=== PATIENT | male | born 1975 | race African-American/Black ===

== ENCOUNTER 2017-01-01 19:17 | Emergency (ER) | payer OTHER ==
[~2017-01-01] VITALS: Ht 185.4 cm; Wt 85.1 kg
[2017-01-01 19:34] VITALS: TEMP 37; Ht 185.4 cm; Wt 85.1 kg
--- NOTE | 2017-01-01 20:14 | DIAGNOSTIC IMAGING REPORT ---
LEFT THUMB 3 VIEWS CLINICAL HISTORY: Left thumb injury and pain. FINDINGS: 3 views of the left thumb are obtained. No prior studies are available for comparison at the time of dictation. The skeletal structures are well mineralized. No fracture is seen and there is no dislocation. Minimal arthritic change is present at the first carpometacarpal and metacarpophalangeal joints. The overlying soft tissues are within normal limits. IMPRESSION: There is no radiographic evidence of left thumb fracture. Electronically signed by: Bryant Simon M.D. 01/01/2017 8:13 PM Dictated Date/Time: 01/01/2017 8:12 PM
--- NOTE | 2017-01-01 20:21 | EMERGENCY ROOM VISIT NOTE ---
ED Visit Note First contact with patient: 19:39 CHIEF COMPLAINT: Left thumb injury yesterday Patient is a [id number] 41-year-old -Martiniquais male brought to the emergency department by corrections officers from [facility] for evaluation of a left thumb injury. He injured the thumb yesterday while playing basketball. He struck the thumb off of another player's elbow. He complains of pain primarily at the first MCP joint. It radiates towards his wrist. He notes swelling and bruising. He had ibuprofen 600 mg today for discomfort. The pain is worse with any attempt at movement of the thumb. The patient did not hear a cracking sound at the time of injury. He rates his discomfort a 10/ 10. REVIEW OF SYSTEMS: Review of systems as per HPI. All other systems reviewed were negative. At least 6 systems reviewed. PMH: Electronic medical records are reviewed and summarized as above/below. See Problem List. Health information from the halfway that accompanies the patient is in his chart and was reviewed. SOCIAL HISTORY: Patient is presently incarcerated. PHYSICAL EXAM: Vital Signs: Reviewed Nurse's notes. MUSCULOSKELETAL: Examination of the left hand show soft tissue swelling involving the first MCP joint. He is markedly tender over the MCP. No pain over the IP joint. He does not have any anatomic snuffbox tenderness. No gross ligamentous instability is appreciated. He has pain with any attempts at range of motion. EMERGENCY DEPARTMENT COURSE: X-rays of the left thumb were obtained and negative for acute fracture or bony abnormality. The patient was wrapped with Lorne wrap. Conservative care measures were discussed. He was encouraged to ice , elevate, wear the Lorne wrap and use ibuprofen for discomfort. Differential diagnosis included fracture, dislocation, sprain, ligamentous tear, among others. Medication reconciliation: I attest that I have personally reviewed the patient' s current medication list. Blood pressure screening: Patient was found to have a slightly elevated blood pressure due to circumstances. I do not believe that the patient requires hypertension monitoring. LEFT THUMB 3 VIEWS CLINICAL HISTORY: Left thumb injury and pain. FINDINGS: 3 views of the left thumb are obtained. No prior studies are available for comparison at the time of dictation. The skeletal structures are well mineralized. No fracture is seen and there is no dislocation. Minimal arthritic change is present at the first carpometacarpal and metacarpophalangeal joints. The overlying soft tissues are within normal limits. IMPRESSION: There is no radiographic evidence of left thumb fracture. Problem List Medical Problems: (1) GERD (gastroesophageal reflux disease) Status: Chronic (2) Hypertension Status: Chronic Vital Signs Date Time Temp Pulse Resp B/P (MAP) Pulse Ox O2 Delivery O2 Flow Rate FiO2 01/01/17 19:34 37.0 48 18 151/89 99 Room Air Departure Information Impression Primary Impression: Injury of left thumb Referrals Rebecca MORE (PCP) Patient Instructions [facility] Additional Instructions Ibuprofen(Motrin, Advil) may be used for fever or pain. Use 600mg every six hours as needed. Take with food. Avoid using more than 2400mg in a 24 hour period. Do not use 2400mg per day for more than three consecutive days without physician direction. Prolonged inappropriate use can lead to stomach upset or ulcers. This medication can be taken if you need to drive, work, or perform activities which may be dangerous when taking narcotic pain medication. (AND/OR) Acetaminophen(Tylenol) may be used for fever or pain. Use 1000mg every six hours as needed. Avoid using more than 3000mg in a 24 hour period. This medication can be taken if you need to drive, work, or perform activities which may be dangerous when taking narcotic pain medication. Ice compresses for 20 minutes at a time four times daily for 2-3 days. Use the Lorne wrap as instructed. Rest and elevate your injury. Continue current medications. Follow-up with medical staff at the halfway if your symptoms are not improving.
[2017-01-01] MEDS ORDERED: AMLO-110 PO (20:28)
[2017-01-01] MEDS ORDERED: PRLSR20 PO (20:28)
[2017-01-01 20:41] VITALS: BP 144/96; PULSE 47; O2SAT 98
== END 2017-01-01 20:51 | disposition home or self-care (01) ==
LOC: C.EDB 19:20 → C.EDD 20:51
DX: S69.92XA Unspecified injury of left wrist, hand and finger(s), initial encounter (principal); W50.0XXA Accidental hit or strike by another person, initial encounter; K21.9 Gastro-esophageal reflux disease without esophagitis; I10 Essential (primary) hypertension